=== PATIENT | female | born 1985 | race Caucasian/White ===

== ENCOUNTER 2018-04-17 11:44 | Emergency (ER) | payer BC ==
[2018-04-17 12:14] VITALS: BP 122/73
[2018-04-17] MEDS ORDERED: Lidocaine 2% PF * 5 ML VIAL INJ ONE (12:31)
[2018-04-17] MEDS ORDERED: Tetan/Diph/Pertus SYR(Tdap)* 0.5 ML SYR(BOOSTRIX) use SYR IM ONE (12:34)
--- NOTE | 2018-04-17 12:53 | UC ---
Skin Complaint HPI - HPI Summary HPI Summary: sliver in her right thumb x 1 hr ago + pain and swelling of the right thumb - History of Current Complaint Chief Complaint: UCSkin Time Seen by Provider: 04/17/18 12:08 Stated Complaint: SLIVER IN RT THUMB Hx Obtained From: Patient Hx Last Menstrual Period: 04/02/18 ?: No Onset/Duration: Sudden Onset, Lasting Hours - 1, Still Present Timing: Constant Onset Severity: Severe Current Severity: Severe Pain Intensity: 8 Location: Discrete - right thumb Character: Swelling, Pain, Painful Aggravating Factor(s): Touch Alleviating Factor(s): Nothing Associated Signs & Symptoms: Positive: Tenderness Related History: Foreign Body - sliver in right thumb - Allergy/Home Medications Allergies/Adverse Reactions: Allergies Allergy/AdvReac Type Severity Reaction Status Date / Time No Known Allergies Allergy Verified 04/17/18 12:07 Home Medications: Home Medications Fexofenadine/Pseudoephedrine [Viri-D 24 Hour Tablet] 1 each PO DAILY PRN [History Confirmed 04/17/18] Review of Systems All Other Systems Reviewed And Are Negative: Yes Constitutional: Positive: Negative Eyes: Positive: Negative Respiratory: Positive: Negative Cardiovascular: Positive: Negative Is Patient Immunocompromised?: No PMH/Surg Hx/FS Hx/Imm Hx Previously Healthy: Yes - Surgical History Surgical History: None - Family History Known Family History: Negative: Diabetes - Social History Alcohol Use: None Substance Use Type: None Smoking Status (MU): Never Smoked Tobacco - Immunization History Most Recent Tetanus Shot: unknown Physical Exam Triage Information Reviewed: Yes Appearance: Well-Appearing, Well-Nourished, Pain Distress Vital Signs: Initial Vital Signs Temp 98.2 F 04/17/18 12:08 Pulse 102 04/17/18 12:08 Resp 15 04/17/18 12:08 BP 122/73 04/17/18 12:08 Pulse Ox 100 04/17/18 12:08 Vital Signs Reviewed: Yes Eyes: Positive: Conjunctiva Clear ENT: Positive: Normal ENT inspection, Hearing grossly normal, Pharynx normal Neck: Positive: Supple, Nontender, No Lymphadenopathy Respiratory: Positive: Chest non-tender, Lungs clear, Normal breath sounds Cardiovascular: Positive: RRR, No Murmur, Pulses Normal Skin: Positive: Other - right thumb : large sliver Course/Dx - Diagnoses Provider Diagnoses: foreign body soft tissue right thumb Procedures - Procedure Summary Procedure Summary: removal of sliver from right thumb anesthesia : 2% lidocaine x 1 cc splinter removal was use to remove the large sliver pt. tolerated the procedure well Discharge - Sign-Out/Discharge Documenting (check all that apply): Patient Departure All imaging exams completed and their final reports reviewed: No Studies - Discharge Plan Condition: Stable Disposition: HOME Prescriptions: Amoxicillin/Clavulanate TAB* [Augmentin TAB 875*] 875 mg PO BID #14 tab Patient Education Materials: Soft Tissue Foreign Body (ED) Referrals: No Primary Care Phys,NOPCP [Primary Care Provider] - - Billing Disposition and Condition Condition: STABLE Disposition: Home
== END 2018-04-17 12:55 | disposition home or self-care (01) ==
LOC: UCCORT 11:44
DX: S60.351A Superficial foreign body of right thumb, initial encounter (principal); W45.8XXA Other foreign body or object entering through skin, initial encounter; Y92.9 Unspecified place or not applicable
CPT/HCPCS: 10120; 90471; 90715; 99202; G0463